=== PATIENT | male | born 1940 | race Caucasian/White ===

== ENCOUNTER 2017-08-08 14:32 | Emergency (ER) | payer MEDICARE ==
[2017-08-08] MEDS ORDERED: Lidocaine 1% 20 ML MDV ONE (14:47)
== END 2017-08-08 15:28 | disposition home or self-care (01) ==
LOC: NAV ERS 14:32
DX: S51.811A Laceration without foreign body of right forearm, initial encounter (principal); S80.211A Abrasion, right knee, initial encounter; E78.5 Hyperlipidemia, unspecified; I10 Essential (primary) hypertension; Z87.891 Personal history of nicotine dependence; Z79.899 Other long term (current) drug therapy; W01.0XXA Fall on same level from slipping, tripping and stumbling without subsequent striking against object, initial encounter
CPT/HCPCS: 12002; J2001

== ENCOUNTER 2020-11-03 22:39 | Emergency (ER) | payer MEDICARE ==
[2020-11-03] MEDS ORDERED: Fentanyl 100 MCG/2 ML VIAL ONE (23:25)
--- NOTE | 2020-11-04 08:49 | RAD ---
TWO VIWS OF THE RIGHT SHOULDER: DATE: 11/03/2020. PROVIDED CLINICAL HISTORY: Trauma. FINDINGS: There is a displaced fracture of the right humeral neck. The glenohumeral relationship appears maint ained. NO additional fracture is evident. There is a partially visualized prominent appearance to t he right hilum. IMPRESSION: 1. Displaced right humeral fracture. 2. Possible right hilar mass. Correlation with chest radiograph recommended. CODE LN POS: ANAT
== END 2020-11-03 23:53 | disposition home or self-care (01) ==
LOC: NAV ERS 22:39
DX: S42.291A Other displaced fracture of upper end of right humerus, initial encounter for closed fracture (principal); E78.5 Hyperlipidemia, unspecified; I10 Essential (primary) hypertension; Z79.01 Long term (current) use of anticoagulants; Z79.899 Other long term (current) drug therapy; W01.0XXA Fall on same level from slipping, tripping and stumbling without subsequent striking against object, initial encounter; Y93.01 Activity, walking, marching and hiking
CPT/HCPCS: 23605; 96374; J3010